=== PATIENT | female | born 1985 | race Caucasian/White ===

== ENCOUNTER 2016-08-01 19:32 | Emergency (ER) | payer BC ==
[~2016-08-01] VITALS: Ht 167.6 cm; Wt 55.5 kg
[~2016-08-01 19:32] MED LIST: MOTRIN 600600 MG/TAB PO; PERCOCET 325 MG1 TA2 PO
[2016-08-01 19:39] VITALS: BP 110/59; TEMP 98.4
[2016-08-01] MEDS ORDERED: PRENATAL1 TA7 PO (19:44)
[2016-08-01 20:27] LABS: BASO % 0.1 % (0.0-2.0); EOS % 0.4 % (0-4.0); GRAN # 6.4 (1.4-6.5); GRAN % 70.6 % (42.2-75.2); HEMOGLOBIN 12.2 g/dl (12.5-16.0); LYMPH # 2.1 (1.2-3.4); LYMPH % 23.2 % (20.0-51.0); MEAN CELL VOLUME 91 fl (80.0-100.0); MEAN CORPUSCULAR HEMOGLOBIN 32 pg (27.0-31.0); MEAN CORPUSCULAR HGB CONC 35 g/dl (33.0-37.0); MEAN PLATELET VOLUME 9.5 fl (7.4-10.4); MONO # 0.5 (0.1-0.6); MONO % 5.3 % (1.7-9.3); PLATELET COUNT 242 K/mm3 (130-400); RED BLOOD COUNT 3.87 M/mm3 (4.10-5.30); REDCELL DISTRIBUTION WIDTH-CV 12.1 % (11.5-14.5)
[2016-08-01 20:28] LABS: HEMATOCRIT 35.1 % (37.0-47.0)
[2016-08-01 20:38] LABS: ADJUSTED CALCIUM 9.4 mg/dL (8.4-10.2); ALBUMIN 3.8 gm/dL (3.5-5.0); BILIRUBIN,TOTAL 0.7 mg/dL (0.0-1.0); CALCIUM 9.2 mg/dL (8.4-10.2); CREATININE, serum 0.5 mg/dL (0.52-1.25); POTASSIUM 3.5 mmol/L (3.4-5.0)
[2016-08-01 20:44] LABS: PH 6 (5-8); URINE APPEARANCE Clear; URINE BACTERIA Rare /hpf; URINE BILIRUBIN Negative (NEGATIVE); URINE BLOOD Negative (NEGATIVE); URINE COLOR Straw; URINE GLUCOSE Negative (NEGATIVE); URINE KETONE Negative (NEGATIVE); URINE RBC 0-2 /hpf; URINE UROBILINOGEN Negative (NEGATIVE); URINE WBC 0-2 /hpf
[2016-08-01 21:21] VITALS: PULSE 76
== END 2016-08-01 21:22 | disposition home or self-care (01) ==
LOC: COL.ER 19:32
PROVIDERS: Physician Assistant
DX: O99.89 Other specified diseases and conditions complicating pregnancy, childbirth and the puerperium (principal); R10.11 Right upper quadrant pain; Z3A.16 16 weeks gestation of pregnancy
CPT/HCPCS: J7040

== ENCOUNTER → 2016-08-09 | Outpatient (CLI) | payer BC ==
[~2016-08-09] MED LIST changes: +PRENATAL1 TA7 PO
== END ==
LOC: COL.RAD 10:27
DX: R10.11 Right upper quadrant pain (principal)

== ENCOUNTER 2017-01-01 09:36 | Outpatient (CLI) | payer BC ==
[~2017-01-01] VITALS: Wt 61.8 kg
[2017-01-01 09:53] VITALS: BP 120/70; PULSE 88; TEMP 97.7
[2017-01-01 11:05] VITALS: BP 106/54; PULSE 83
== END 2017-01-01 11:10 | disposition home or self-care (01) ==
LOC: LDRO 09:36 → LDR 09:45 → LDRO 11:10
DX: O42.92 Full-term premature rupture of membranes, unspecified as to length of time between rupture and onset of labor (principal); Z3A.38 38 weeks gestation of pregnancy
CPT/HCPCS: OP

== ENCOUNTER 2017-01-05 05:12 | Inpatient (IN) | payer BC ==
[2017-01-05] VITALS (36 sets, daily range): BP systolic 94–153; BP diastolic 43–91; PULSE 60–118; TEMP 97.6–98.5
[~2017-01-05] VITALS: Ht 165.1 cm; Wt 58.2 kg
[2017-01-05 07:58] LABS: BASO # 0.1 (0.0-0.2); BASO % 0.4 % (0.0-2.0); EOS % 0.2 % (0-4.0); GRAN # 10.6 (1.4-6.5); GRAN % 80.7 % (42.2-75.2); HEMATOCRIT 39.3 % (37.0-47.0); HEMOGLOBIN 13.7 g/dl (12.5-16.0); LYMPH # 1.5 (1.2-3.4); LYMPH % 11.5 % (20.0-51.0); MEAN CELL VOLUME 93 fl (80.0-100.0); MEAN CORPUSCULAR HEMOGLOBIN 32 pg (27.0-31.0); MEAN CORPUSCULAR HGB CONC 35 g/dl (33.0-37.0); MEAN PLATELET VOLUME 9.6 fl (7.4-10.4); MONO # 0.8 (0.1-0.6); MONO % 6.4 % (1.7-9.3); PLATELET COUNT 215 K/mm3 (130-400); RED BLOOD COUNT 4.23 M/mm3 (4.10-5.30); REDCELL DISTRIBUTION WIDTH-CV 12.9 % (11.5-14.5); WHITE BLOOD COUNT 13.2 K/mm3 (4.8-10.8)
[2017-01-06 03:00] VITALS: BP 104/63; PULSE 77; TEMP 97.6
[2017-01-06 07:41] LABS: BASO % 0.2 % (0.0-2.0); EOS % 0.3 % (0-4.0); GRAN # 10.4 (1.4-6.5); GRAN % 80.3 % (42.2-75.2); LYMPH # 1.5 (1.2-3.4); LYMPH % 11.3 % (20.0-51.0); MEAN CELL VOLUME 92 fl (80.0-100.0); MEAN CORPUSCULAR HGB CONC 34 g/dl (33.0-37.0); MEAN PLATELET VOLUME 9.2 fl (7.4-10.4); MONO # 0.9 (0.1-0.6); MONO % 7.3 % (1.7-9.3); PLATELET COUNT 165 K/mm3 (130-400); RED BLOOD COUNT 3.12 M/mm3 (4.10-5.30); REDCELL DISTRIBUTION WIDTH-CV 12.9 % (11.5-14.5)
[2017-01-06 07:42] LABS: HEMATOCRIT 28.8 % (37.0-47.0); HEMOGLOBIN 9.9 g/dl (12.5-16.0); MEAN CORPUSCULAR HEMOGLOBIN 32 pg (27.0-31.0)
[2017-01-06 09:09] VITALS: BP 108/63; PULSE 63; TEMP 97.8
== END 2017-01-06 16:50 | disposition home or self-care (01) | DRG 775 ==
LOC: LDRO 05:12 → LDR 07:09 → OB 07:09
PROVIDERS: Obstetrics & Gynecology
PROC: 10E0XZZ Delivery of Products of Conception, External Approach (ICD-10-PCS; principal; 2017-01-05)
PROC: 0KQM0ZZ Repair Perineum Muscle, Open Approach (ICD-10-PCS; 2017-01-05)
DX: O34.211 Maternal care for low transverse scar from previous cesarean delivery (principal); N85.8 Other specified noninflammatory disorders of uterus; O70.1 Second degree perineal laceration during delivery; Z3A.39 39 weeks gestation of pregnancy; Z37.0 Single live birth
CPT/HCPCS: J2405; J2590; J2795; J7120

== ENCOUNTER 2020-02-10 08:12 | Outpatient (RCR) | payer BC | END 2020-05-10 | disposition home or self-care (01) | LOC: WSST | DX: K21.9 Gastro-esophageal reflux disease without esophagitis (principal) ==

== ENCOUNTER 2020-11-11 03:45 | Inpatient (IN) | payer BC ==
[~2020-11-11] VITALS: Ht 167.6 cm; Wt 68.2 kg
[2020-11-11] VITALS (17 sets, daily range): BP systolic 103–145; BP diastolic 53–99; PULSE 63–111; TEMP 97.2–98.1
--- NOTE | 2020-11-11 03:55 | NUR ---
G4L2 at 39 weeks and 3 days arrives to unit with complaint of contractions "all night" but started to get worse around 2 this morning. Pt appears to be uncomfortable and had episode of emesis once arriving on unit. Pt denies problems this . Unsure if her water has broken. Denies vaginal bleeding. Pt oriented to room, bed in low and locked position, call light within reach. Once in bed patient reports feeling like she needs to have bowel movement. SVE performed at this time . US and toco explained and applied. Admission assessment started. Vital signs obtained.
--- NOTE | 2020-11-11 04:08 | NUR ---
0408- IV START TO LEFT WRIST, BLOOD UNABLE TO BE DRAWN FOR LABS. LR INFUSING. 0419- KATHI LOMBARDI AT BEDSIDE FOR EPIDURAL. PT POSITIONED SITTING UP IN BED. PT VERY ANXIOUS ABOUT EPIDURAL AND DELIVERY IN GENERAL. REASSURANCE AND SUPPORT PROVIDED. 0424- EPIDURAL SINGLE SHOT PROVIDED BY KATHI LOMBARDI. PT TOLERATED WELL. 0433- EPIDURAL COMPLETE. PT REPOSITIONED IN LEFT WEDGE AND MONITORS ADJUSTED. PT COMPLAINS OF PRESSURE, SVE BY THIS NURSE 9/100/+1. REASSURANCE PROVIDED. 0445- PT COMPLAINS OF WANTING TO BEAR DOWN WITH CONTRACTIONS. SVE BY THIS NURSE 10/100/+2. PT ENCOURAGED TO BREATHE THROUGH CONTRACTIONS. 0447- DR DIEZ CALLED FOR DELIVERY. 0502- DR DIEZ AT BEDSIDE FOR DELIVERY. PT POSITIONED IN FOOTPLATES AND INSTRUCTED ON PUSHING. 0504- DR CHARY ANIK'S BAG OF [place]. PT UNSURE IF SHE HAD BEEN RUPTURED PRIOR TO THIS. 0506- PT BEGINS COACHED PUSHING WITH CONTRACTIONS. 0519- SPONTANEOUS VAGINAL DELIVERY OF VIABLE MALE, VIGOROUS, TO MOTHER'S ABDOMEN AND CARE OF NURSERY STAFF. 0522- SPONTANEOUS DELIVERY OF PLACENTA, EXAMINED BY DR DIEZ. PITOCIN INFUSING. REPAIR IN PROGRESS. 0540- REPAIR COMPLETE. PERICARE PROVIDED. ICEPACK TO PERINEUM. FEET DOWN FROM FOOTPLATES AND RECOVERY STARTED.
[2020-11-11 04:53] LABS: BASO % 0.3 % (0.0-2.0); EOS # 0.1 (0.0-0.7); EOS % 0.5 % (0-4.0); GRAN # 6.7 (1.4-6.5); GRAN % 65.2 % (42.2-75.2); HEMOGLOBIN 10.9 g/dl (12.5-16.0); LYMPH # 2.4 (1.2-3.4); LYMPH % 23.7 % (20.0-51.0); MEAN CELL VOLUME 86 fl (80.0-100.0); MEAN CORPUSCULAR HEMOGLOBIN 29 pg (27.0-31.0); MEAN CORPUSCULAR HGB CONC 34 g/dl (33.0-37.0); MEAN PLATELET VOLUME 9.7 fl (7.4-10.4); MONO % 9.7 % (1.7-9.3); PLATELET COUNT 250 K/mm3 (130-400); RED BLOOD COUNT 3.74 M/mm3 (4.10-5.30); REDCELL DISTRIBUTION WIDTH-CV 12.6 % (11.5-14.5)
[2020-11-11 04:54] LABS: HEMATOCRIT 32.1 % (37.0-47.0)
[2020-11-11] MEDS ORDERED: PRENATAL VITAMI1 TA3 PO (04:58)
--- NOTE | 2020-11-11 06:40 | NUR ---
Up to BR post delivery for first time. Steady gait noted. Standby assist only. Cassandra care provided. Explanation of measuring first 3 voids provided. Verbalizes understanding.
[2020-11-12 07:40] VITALS: BP 121/68; PULSE 76; TEMP 98
== END 2020-11-12 10:45 | disposition home or self-care (01) | DRG 807 ==
LOC: LDRO 03:45 → OB 04:13 → LDR 04:13 → OB 08:20
PROVIDERS: Obstetrics & Gynecology; ADMIT Student in an Organized Health Care Education/Training Program
PROC: 10E0XZZ Delivery of Products of Conception, External Approach (ICD-10-PCS; principal; 2020-11-11)
PROC: 0HQ9XZZ Repair Perineum Skin, External Approach (ICD-10-PCS; 2020-11-11)
DX: O34.211 Maternal care for low transverse scar from previous cesarean delivery (principal); Z37.0 Single live birth; Z3A.39 39 weeks gestation of pregnancy; O70.0 First degree perineal laceration during delivery
CPT/HCPCS: J2590; J7120